=== PATIENT | male | born 1990 | race Caucasian/White ===

== ENCOUNTER 2021-07-18 15:39 | Outpatient (CLI) | payer BC ==
[2021-07-18 16:58] LABS: Hemoglobin 15.9 g/dL (13.5-17.5); Mean Corpuscular Hemoglobin 32.4 pg (27.0-33.0); Mean Corpuscular Volume 92.7 fl (81.2-95.1); Mean Platelet Volume 9.6 fl (7.4-10.4); Platelet Count 210 10x3/uL (150-450); RBC Distribution Width 11.8 % (11.5-14.5); White Blood Cell (WBC) Count 6.3 10x3/uL (3.5-10.5)
[2021-07-19 00:51] LABS: SARS-CoV-2 PCR by NAA Not Detected (NotDetected)
== END 2021-07-18 15:40 | disposition home or self-care (01) ==
LOC: LABBT 15:39
PROVIDERS: ATTEND Orthopaedic Surgery Hand Surgery
DX: Z01.812 Encounter for preprocedural laboratory examination (principal); S62.307A Unspecified fracture of fifth metacarpal bone, left hand, initial encounter for closed fracture; Z20.822 Contact with and (suspected) exposure to COVID-19
CPT/HCPCS: 85027; U0003; U0005

== ENCOUNTER 2021-07-21 10:09 | Day surgery (SDC) | payer BC ==
[2021-07-17 13:11] VITALS: BMI 31.6
[2021-07-21] MEDS ORDERED: Lidocaine 1% MPF 2 ML VIAL ONE (10:29)
[2021-07-21] MEDS ORDERED: Fentanyl 250 MCG/5 ML VIAL ONE (12:38)
[2021-07-21] MEDS ORDERED: Neomycin-Polymyxin 1 ML AMP ONE (12:41)
[2021-07-21] MEDS ORDERED: Bupivacaine PF 0.5% 30 ML VIAL ONE (12:41)
[2021-07-21] MEDS ORDERED: Bacitracin Zinc Ointment 30 gm TUBE ONE (12:41)
[2021-07-21] MEDS ORDERED: ceFAZolin Sodium (SDC) 2 GM/100 ML BAG ONE ×2 (13:37)
[2021-07-21] MEDS ORDERED: Ondansetron PF 4 MG/2 ML Vial ONE (14:13)
[2021-07-21] MEDS ORDERED: PROPOFOL 200 MG/20 ML VIAL ONE (14:13)
[2021-07-21] MEDS ORDERED: Lidocaine 1% PF 5 ML VIAL ONE (14:13)
[2021-07-21] MEDS ORDERED: Dexamethasone 20 MG/5 ML VIAL ONE (14:13)
[2021-07-21] MEDS ORDERED: Ketorolac Tromethamine 30 MG/ML VIAL ONE (14:55)
[2021-07-21] MEDS ORDERED: Meperidine HCl/PF 25 MG/ML VIAL ONE (15:11)
== END 2021-07-21 17:08 | disposition home or self-care (01) ==
LOC: SDC 10:09
PROVIDERS: ATTEND Orthopaedic Surgery Hand Surgery
PROC: 0PSQ34Z Reposition Left Metacarpal with Internal Fixation Device, Percutaneous Approach (ICD-10-PCS; principal; 2021-07-21)
DX: S62.337A Displaced fracture of neck of fifth metacarpal bone, left hand, initial encounter for closed fracture (principal); W22.8XXA Striking against or struck by other objects, initial encounter
CPT/HCPCS: 76000; C1713; J0690; J1100; J1885; J2175; J2405; J2704; J3010; S0020

== ENCOUNTER 2021-12-25 02:59 | Emergency (ER) | payer BC ==
[2021-12-25] MEDS ORDERED: Boostrix 0.5 ML (Tdap) VIAL ONE (03:05)
== END 2021-12-25 03:20 ==
LOC: ERS 02:59
DX: S01.01XA Laceration without foreign body of scalp, initial encounter (principal); R00.0 Tachycardia, unspecified; X58.XXXA Exposure to other specified factors, initial encounter
CPT/HCPCS: 90471; 90715